=== PATIENT | female | born 1945 ===

== ENCOUNTER → 2022-08-22 15:49 | Outpatient (CLI) | payer OTHER, SELFPAY ==
--- NOTE | ~2022-08-22 | MR_ITS ---
MRI of the left knee Clinical history: Pain Technique: Coronal proton density and proton density-weighted images, sagittal proton-density and T2 fat-sat images, and axial proton-density fat-saturated images were acquired. Findings: Anterior and posterior cruciate ligaments are intact. Medial collateral ligament and the la teral collateral ligament complex are intact. Popliteus tendon is intact. There is a vertical tear of the posterior horn of the medial meniscus. No lateral meniscal tear ident ified. There is subchondral insufficiency fracture in the lateral femoral condyle with possible early develo ping osteochondral lesion. There is extensive surrounding marrow edema throughout the lateral femoral condyle region. There is mild chondromalacia along the medial femoral condyle. There is moderate to high-grade chondromalacia along the medial patellar facet. Extensor mechanism is intact. Small joint effusion present. No Chiu's cyst. There is extensive edema tous change of the popliteus muscle belly, as well as the visualized muscle bellies in the anterior c ompartment of the proximal calf. There is also probable prominent edematous change of the distal visu alized metastasis lateral is muscle belly. Impression: Subchondral sufficiency fracture in the lateral femoral condyle with extensive surrounding marrow cachorro ma and possible very early developing osteochondral lesion. Extensive muscle edema involving the anterior compartment muscle bellies in the proximal calf, poplit eus muscle belly, and distal visualized vastus lateralis muscle belly. Correlate for posttraumatic ch jong versus other nonspecific myositis. Denervation edema less likely given the overall distribution of findings. Vertical tear of the posterior horn of the medial meniscus. 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 Reviewed, dictated and finalized at [facility]. Impression: Subchondral sufficiency fracture in the lateral femoral condyle with extensive surrounding marrow edema and possible very early developing osteochondral lesio n. Extensive muscle edema involving the anterior compartment muscle bellies in the proximal calf, popliteus muscle belly, and distal visualized vastus lateralis muscle belly. Correlate for posttraumatic change versus other nonspecific myosi tis. Denervation edema less likely given the overall distribution of findings. Vertical tear of the posterior horn of the medial meniscus. 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
== END ==
PROVIDERS: Visit Provider Orthopaedic Surgery
DX: S72.422A Displaced fracture of lateral condyle of left femur, initial encounter for closed fracture (principal); M25.562 Pain in left knee; M79.89 Other specified soft tissue disorders; S83.242A Other tear of medial meniscus, current injury, left knee, initial encounter; M94.262 Chondromalacia, left knee
CPT/HCPCS: 73721